=== PATIENT | female | born 1995 | race Caucasian/White ===

== ENCOUNTER → 2017-07-28 | Outpatient (CLI) | payer OTHER ==
[~2017-07-28] MED LIST: CLIN30GE15 TP; DICY20TA70 PO; HYDR-4228 PO; PREN-127 PO; PROP10TA58 PO; SULF-198 PO
== END ==
LOC: LAB 14:01
PROVIDERS: ATTEND Nurse Practitioner Family
DX: N39.0 Urinary tract infection, site not specified (principal)
CPT/HCPCS: 87088

== ENCOUNTER → 2017-08-10 | Outpatient (CLI) | payer OTHER | LOC: LAB 08:24 | PROVIDERS: ATTEND Nurse Practitioner Family | DX: R30.0 Dysuria (principal) | CPT/HCPCS: 81001 ==

== ENCOUNTER → 2017-08-17 | Outpatient (CLI) | payer OTHER ==
[~2017-08-17] MED LIST changes: +CLIN100S3 VG
== END ==
LOC: LAB 09:06
PROVIDERS: ATTEND Nurse Practitioner Family
DX: R30.0 Dysuria (principal)
CPT/HCPCS: 87210; 87491; 87591

== ENCOUNTER → 2017-09-21 | Outpatient (CLI) | payer OTHER ==
[2017-09-21 12:08] LABS: PLATELET COUNT, AUTOMATED 307 K/uL (150-450)
== END ==
LOC: LAB 11:48
PROVIDERS: ATTEND Nurse Practitioner Family
DX: R53.83 Other fatigue (principal); R11.2 Nausea with vomiting, unspecified
CPT/HCPCS: 36415; 82040; 82247; 82310; 82374; 82435; 82565; 82947; 84075; 84132; 84155; 84295; 84443; 84450; 84460; 84520; 85025

== ENCOUNTER → 2018-01-19 | Outpatient (CLI) | payer OTHER | LOC: LAB 08:46 | PROVIDERS: ATTEND Nurse Practitioner Family | DX: R33.9 Retention of urine, unspecified (principal) | CPT/HCPCS: 81001 ==

== ENCOUNTER → 2018-03-28 | Outpatient (REF) ==
[~2018-03-28] MED LIST changes: +CETI10CA8 PO; +DOXY-181 PO; +DULO30CA6 PO; +DULO60CA7 PO
[2018-03-28 10:03] LABS: LDL CHOLESTEROL 68 mg/dl
== END ==
DX: Z02.9 Encounter for administrative examinations, unspecified (principal)

== ENCOUNTER → 2018-04-10 | Outpatient (CLI) | payer OTHER ==
--- NOTE | 2018-04-10 14:58 | RADIOLOGY IMAGING REPORT ---
FACILITY: [facility] - [place] PATIENT NAME: Janelle Spencer : 1995 MR: [id number] V: [id number] EXAM DATE: ORDERING PHYSICIAN: VIKTORIYA RINCON TECHNOLOGIST: Location: [facility] Patient: Janelle Spencer : 1995 Visit/Account:[id number] Date of Sevice: 04/10/2018 KIDNEYS EXAMINATION: Renal ultrasound. History: Urinary retention, frequency night COMPARISON STUDIES: CT abdomen pelvis August 15, 2012 FINDINGS: Kidneys: Right kidney- 10.5 x 3.7 x 5.6 cm Left kidney- 1.5 x 4.8 x 6.2 cm Uniform and symmetric blood flow in each kidney by Doppler ultrasound. Hydronephrosis: none Resistive index on the right 0.61 on the left 0.57 Bladder: Prevoid volume 500 mL. Post void residual 26.8 mL. Bilateral ureteral jets are present Abdominal aorta and IVC: Aorta and IVC are patent by Doppler ultrasound. IMPRESSION: Unremarkable renal ultrasound Report Dictated By: Mary Mon MD at 04/10/2018 2:53 PM Report E-Signed By: Mary Mon MD at 04/10/2018 2:55 PM WSN:[email or web address]
--- NOTE | 2018-04-10 15:03 | RADIOLOGY IMAGING REPORT ---
[place] [facility] [place] Janelle Spencer : 1995 MR: [id number] V: [id number] EXAM DATE: ORDERING PHYSICIAN: VIKTORIYA RINCON TECHNOLOGIST: Location: [facility] [place] Patient: Janelle Spencer : 1995 Visit/Account:[id number] Date of Sevice: 04/10/2018 PELVIC HISTORY: urinary retention IUD TECHNIQUE: Transvaginal and transabdominal ultrasound pelvis. COMPARISON: None. FINDINGS: Uterus: ; 7.6 cm length x 3.4 cm AP x 5.4 cm transverse. Myometrium: Unremarkable. Endometrium: IUD appears to been good position within the endometrial canal; double thickness 6 mm. Cervix: Grossly negative. Ovaries: Right - 4 x 3.8 x 2.2 cm Left - 4.2 x 3.8 x 3.2 cm. The left ovary contains a 2.5 cm cyst Blood flow is documented in each ovary by duplex Doppler ultrasound. Adnexa: Grossly unremarkable. Free pelvic fluid: Mild. Distended IMPRESSION: IUD appears to been good position within the endometrial canal 2.5 cm simple left ovarian cyst Mild amount of free pelvic fluid Report Dictated By: Mary Mon MD at 04/10/2018 2:55 PM Report E-Signed By: Mary Mon MD at 04/10/2018 2:58 PM WSN:[email or web address]
== END ==
LOC: US 01:10
PROVIDERS: ATTEND Nurse Practitioner Family
DX: N83.202 Unspecified ovarian cyst, left side (principal); R33.9 Retention of urine, unspecified; R10.2 Pelvic and perineal pain
CPT/HCPCS: 76705; 76856

== ENCOUNTER → 2018-05-11 | Outpatient (CLI) | payer OTHER ==
[~2018-05-11] MED LIST changes: +FLU150 PO
== END ==
LOC: LAB 14:06
PROVIDERS: ATTEND Nurse Practitioner Family
DX: M25.50 Pain in unspecified joint (principal)
CPT/HCPCS: 36415; 85651; 86140

== ENCOUNTER → 2018-05-25 | Outpatient (CLI) | payer OTHER | LOC: LAB 13:24 | PROVIDERS: ATTEND Nurse Practitioner Family | DX: R30.9 Painful micturition, unspecified (principal); R35.0 Frequency of micturition | CPT/HCPCS: 81001 ==

== ENCOUNTER → 2018-06-25 | Outpatient (CLI) | payer OTHER ==
[2018-06-25 16:23] LABS: PLATELET COUNT, AUTOMATED 306 K/uL (150-450)
== END ==
LOC: LAB 15:57
PROVIDERS: ATTEND Nurse Practitioner Family
DX: R50.9 Fever, unspecified (principal); R53.81 Other malaise
CPT/HCPCS: 36415; 82040; 82247; 82310; 82374; 82435; 82565; 82947; 84075; 84132; 84155; 84295; 84450; 84460; 84520; 85025; 86308

== ENCOUNTER → 2018-07-09 | Outpatient (CLI) | payer OTHER ==
[~2018-07-09] MED LIST changes: +GADOBENATE 529MG/1ML 15ML VIAL IVP ONE
--- NOTE | 2018-07-09 11:05 | RADIOLOGY IMAGING REPORT ---
FACILITY: [facility] - [place] PATIENT NAME: Janelle Spencer : 1995 MR: [id number] V: [id number] EXAM DATE: ORDERING PHYSICIAN: VIKTORIYA RINCON TECHNOLOGIST: Location: [facility] Patient: Janelle Spencer : 1995 Visit/Account:[id number] Date of Sevice: 07/09/2018 Examination: MR brain without and with contrast History: Urinary retention, mild to bilateral paresthesia Comparison: Urinary retention, myalgia, bilateral paresthesia Technique: Multiplane MR imaging was performed through the brain without and with contrast. 14 cc IV multihance was administered. Findings: Diffusion: None Ventricles: Normal Midline shift: None Extraxial fluid: None Midline craniocervical structures: The cerebellar tonsils extend 5 mm inferior to the foramen magnum. Normal tonsil morphology. Parenchyma: Normal Enhancement: Benign enhancing developmental venous anomaly in the right temporoparietal region, axial postcontrast image 75. No pathologic enhancement. Vascular flow voids: Normal Orbits and paranasal sinuses: Normal Other: No significant additional finding. Impression: 1. The cerebellar tonsils extend 5 mm inferior to the foramen magnum. Normal cerebellar tonsil morp hology. 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 A Chiari 1 malformation cannot be entirely excluded. 2. Otherwise unremarkable brain MR without and with contrast Report Dictated By: Keyshawn Hyman MD at 07/09/2018 10:42 AM Report E-Signed By: Keyshawn Hyman MD at 07/09/2018 10:49 AM WSN:[id number]
== END ==
LOC: MRI 02:08
PROVIDERS: ATTEND Nurse Practitioner Family
DX: G93.5 Compression of brain (principal)
CPT/HCPCS: 70553; A9577

== ENCOUNTER → 2018-07-19 | Outpatient (CLI) | payer OTHER ==
--- NOTE | 2018-07-19 14:45 | RADIOLOGY IMAGING REPORT ---
FACILITY: [facility] PATIENT NAME: Janelle Spencer : 1995 MR: [id number] V: [id number] EXAM DATE: ORDERING PHYSICIAN: VIKTORIYA RINCON TECHNOLOGIST: Location: [facility] Patient: Janelle Spencer : 1995 Visit/Account:[id number] Date of Sevice: 07/19/2018 EXAMINATION: MRI Cervical spine without and with intravenous contrast MRI Thoracic spine without and with intravenous contrast MRI Lumbar spine without and with intravenous contrast HISTORY: Bilateral arm paresthesias. Urinary retention. COMPARISON: None available. TECHNIQUE: Multi-planar, multi-sequence cervical, thoracic, and lumbar spine MRI was performed befor e and after IV contrast. CONTRAST: 15 mL of IV MultiHance FINDINGS: CERVICAL SPINE: Alignment: Normal. Vertebral marrow signal: Negative. Cranio-cervical junction: Negative. Visualized posterior fossa: Negative. Soft tissues: Negative. Cervical cord: Negative. Enhancement pattern: Negative. Disc Spaces: C1-2: Negative. C2-3: Negative. C3-4: Negative. C4-5: Negative. C5-6: Broad-based posterior disc osteophyte complex with no significant stenosis. C6-7: Broad-based posterior disc osteophyte complex with no significant stenosis. C7-T1: Negative. THORACIC SPINE: Alignment: Negative. Vertebral marrow signal: Negative. Paravertebral soft tissues: Negative. Thoracic cord: Negative. Enhancement: Normal. Disc Spaces: Negative. LUMBAR SPINE: Alignment: Normal. Vertebral marrow signal: Negative. Distal thoracic cord: Negative. Conus: negative, terminates at the mid L1 vertebral body Cauda equina: Negative. Paravertebral soft tissues: Negative. Visualized abdominal and pelvic structures: Negative. Enhancement pattern: Negative. Disc Spaces: L1-2: Negative. L2-3: Negative. L3-4: Negative. L4-5: Negative. L5-S1: Negative. IMPRESSION: 1. Mild degenerative disc disease at C5-C6 and C6-C7. 2. Otherwise unremarkable MRI of the cervical, thoracic, and lumbar spine without and with IV contras t. Report Dictated By: Antelmo Bingham MD at 07/19/2018 2:28 PM Report E-Signed By: Antelmo Bingham MD at 07/19/2018 2:41 PM WSN:[email or web address]
--- NOTE | 2018-07-19 14:46 | RADIOLOGY IMAGING REPORT ---
FACILITY: [facility] [place] PATIENT NAME: Janelle Spencer : 1995 MR: [id number] V: [id number] EXAM DATE: ORDERING PHYSICIAN: VIKTORIYA RINCON TECHNOLOGIST: Location: [facility] Patient: Janelle Spencer : 1995 Visit/Account:[id number] Date of Sevice: 07/19/2018 EXAMINATION: MRI Cervical spine without and with intravenous contrast MRI Thoracic spine without and with intravenous contrast MRI Lumbar spine without and with intravenous contrast HISTORY: Bilateral arm paresthesias. Urinary retention. COMPARISON: None available. TECHNIQUE: Multi-planar, multi-sequence cervical, thoracic, and lumbar spine MRI was performed befor e and after IV contrast. CONTRAST: 15 mL of IV MultiHance FINDINGS: CERVICAL SPINE: Alignment: Normal. Vertebral marrow signal: Negative. Cranio-cervical junction: Negative. Visualized posterior fossa: Negative. Soft tissues: Negative. Cervical cord: Negative. Enhancement pattern: Negative. Disc Spaces: C1-2: Negative. C2-3: Negative. C3-4: Negative. C4-5: Negative. C5-6: Broad-based posterior disc osteophyte complex with no significant stenosis. C6-7: Broad-based posterior disc osteophyte complex with no significant stenosis. C7-T1: Negative. THORACIC SPINE: Alignment: Negative. Vertebral marrow signal: Negative. Paravertebral soft tissues: Negative. Thoracic cord: Negative. Enhancement: Normal. Disc Spaces: Negative. LUMBAR SPINE: Alignment: Normal. Vertebral marrow signal: Negative. Distal thoracic cord: Negative. Conus: negative, terminates at the mid L1 vertebral body Cauda equina: Negative. Paravertebral soft tissues: Negative. Visualized abdominal and pelvic structures: Negative. Enhancement pattern: Negative. Disc Spaces: L1-2: Negative. L2-3: Negative. L3-4: Negative. L4-5: Negative. L5-S1: Negative. IMPRESSION: 1. Mild degenerative disc disease at C5-C6 and C6-C7. 2. Otherwise unremarkable MRI of the cervical, thoracic, and lumbar spine without and with IV contras t. Report Dictated By: Antelmo Bingham MD at 07/19/2018 2:28 PM Report E-Signed By: Antelmo Bingham MD at 07/19/2018 2:41 PM WSN:[email or web address]
--- NOTE | 2018-07-19 14:46 | RADIOLOGY IMAGING REPORT ---
FACILITY: [facility] PATIENT NAME: Janelle Spencer : 1995 MR: [id number] V: [id number] EXAM DATE: ORDERING PHYSICIAN: VIKTORIYA RINCON TECHNOLOGIST: Location: [facility] [place] Patient: Janelle Spencer : 1995 Visit/Account:[id number] Date of Sevice: 07/19/2018 EXAMINATION: MRI Cervical spine without and with intravenous contrast MRI Thoracic spine without and with intravenous contrast MRI Lumbar spine without and with intravenous contrast HISTORY: Bilateral arm paresthesias. Urinary retention. COMPARISON: None available. TECHNIQUE: Multi-planar, multi-sequence cervical, thoracic, and lumbar spine MRI was performed befor e and after IV contrast. CONTRAST: 15 mL of IV MultiHance FINDINGS: CERVICAL SPINE: Alignment: Normal. Vertebral marrow signal: Negative. Cranio-cervical junction: Negative. Visualized posterior fossa: Negative. Soft tissues: Negative. Cervical cord: Negative. Enhancement pattern: Negative. Disc Spaces: C1-2: Negative. C2-3: Negative. C3-4: Negative. C4-5: Negative. C5-6: Broad-based posterior disc osteophyte complex with no significant stenosis. C6-7: Broad-based posterior disc osteophyte complex with no significant stenosis. C7-T1: Negative. THORACIC SPINE: Alignment: Negative. Vertebral marrow signal: Negative. Paravertebral soft tissues: Negative. Thoracic cord: Negative. Enhancement: Normal. Disc Spaces: Negative. LUMBAR SPINE: Alignment: Normal. Vertebral marrow signal: Negative. Distal thoracic cord: Negative. Conus: negative, terminates at the mid L1 vertebral body Cauda equina: Negative. Paravertebral soft tissues: Negative. Visualized abdominal and pelvic structures: Negative. Enhancement pattern: Negative. Disc Spaces: L1-2: Negative. L2-3: Negative. L3-4: Negative. L4-5: Negative. L5-S1: Negative. IMPRESSION: 1. Mild degenerative disc disease at C5-C6 and C6-C7. 2. Otherwise unremarkable MRI of the cervical, thoracic, and lumbar spine without and with IV contras t. Report Dictated By: Antelmo Bingham MD at 07/19/2018 2:28 PM Report E-Signed By: Antelmo Bingham MD at 07/19/2018 2:41 PM WSN:[email or web address]
== END ==
LOC: MRI 00:49
PROVIDERS: ATTEND Nurse Practitioner Family
DX: M47.892 Other spondylosis, cervical region (principal); R20.2 Paresthesia of skin
CPT/HCPCS: 72156; 72157; 72158; A9577

== ENCOUNTER → 2018-07-24 | Outpatient (CLI) | payer OTHER ==
[~2018-07-24] MED LIST changes: -GADOBENATE 529MG/1ML 15ML VIAL IVP ONE
--- NOTE | 2018-07-24 17:31 | RADIOLOGY IMAGING REPORT ---
FACILITY: [facility] - [place] PATIENT NAME: Janelle Spencer : 1995 MR: [id number] V: [id number] EXAM DATE: ORDERING PHYSICIAN: ADIA HOOD TECHNOLOGIST: Location: [facility] Patient: Janelle Spencer : 1995 Visit/Account:[id number] Date of Sevice: 07/24/2018 KUB SINGLE VIEW ABDOMEN Given history: urinary frequency, hesitancy COMPARISON: None Bowel gas: Bowel gas pattern is within normal limits with scattered air through large and small yinka l. Moderate fecal material is seen in the descending colon with the colon is nondistended and this i s probably within normal limits No abnormal calcifications seen. Renal shadows are not well visualized. Additional findings: There is no evidence of distended bladder. There is an IUD in place which pro jects upside down indicating the uterus is either anteverted or retroverted IMPRESSION: No acute pathology identified. Consider renal and urinary bladder ultrasound for further evaluation Report Dictated By: Winston Jones MD at 07/24/2018 5:23 PM Report E-Signed By: Winston Jones MD at 07/24/2018 5:26 PM WSN:[email or web address]
== END ==
LOC: RAD 15:52
PROVIDERS: ATTEND Urology
DX: R35.0 Frequency of micturition (principal)
CPT/HCPCS: 74018

== ENCOUNTER → 2018-08-10 | Outpatient (CLI) | payer OTHER | LOC: LAB 16:22 | PROVIDERS: ATTEND Nurse Practitioner Family | DX: K92.1 Melena (principal) | CPT/HCPCS: 82274 ==

== ENCOUNTER 2018-09-11 00:32 | Day surgery (SDC) | payer OTHER ==
[~2018-09-11] VITALS: Ht 165.1 cm; Wt 65.3 kg
[~2018-09-11 00:32] MED LIST changes: +LORA10CA3 PO
[2018-09-11] MEDS ORDERED: PROPOFOL EMUL(*) 10MG/ML 20 ML 60 ML ONE (08:49)
[2018-09-11] MEDS ORDERED: LIDOCAINE MPF 1% 5 ML VIAL ONE (08:49)
[2018-09-11] MEDS ORDERED: LIDOCAINE/SOD BICARB 8.4% SYR ID ONE (09:30)
[2018-09-11] MEDS ORDERED: NORMOSOL R SOLN(*) 1000 ML BAG 1,000 ML IV PRN (09:30)
[2018-09-11 09:43] VITALS: BP 131/78
[2018-09-11 12:13] VITALS: BP 104/48
--- NOTE | 2018-09-11 12:39 | Short(Outpt) Discharge Summary ---
Discharge Summary Reason for Hosp/Final Diag: (1) Blood per rectum Hospital Course & Plan: pt presented for colonoscopy. she tolerated the procedure well. she will be discharged home when criteria met. Discharge Instructions Home Meds Active Scripts Duloxetine HCl (Duloxetine HCl) 60 Mg Capsule.dr, 1 CAP PO DAILY, #90 CAP 1 Refill Prov:VIKTORIYA RINCON APRN-Rachel 05/11/18 Dicyclomine Hcl (DICYCLOMINE HCL) 20 Mg Tablet, 1 TAB PO QID PRN for IBS, #30 TAB 5 Refills Prov:VIKTORIYA RINCON APRN-Rachel 07/28/17 Reported Medications Loratadine (CLARITIN) 10 Mg Capsule, 10 MG PO, CAPSULE 08/16/18 Vits W-Ca,Fe,Fa(<1MG) ( VITAMINS) 1 Each Tablet, 1 EACH PO DAILY, TAB 07/28/17 Propranolol Hcl (PROPRANOLOL HCL) 10 Mg Tablet, 20 MG PO BID 07/28/17 Diet: Regular Activity: As Tolerated Special Instructions: we will call you in 10 days with results. MODESTA CROOKS Sep 11, 2018 12:39
[2018-09-11 12:49] VITALS: BP 100/65
[2018-09-11 13:05] VITALS: BP 122/70
[2018-09-11 13:07] VITALS: BP 120/81
== END 2018-09-11 13:20 | disposition home or self-care (01) ==
LOC: OR 00:32
PROVIDERS: ATTEND Surgery
DX: K92.1 Melena (principal)
CPT/HCPCS: 00811; 45380; 88305; J2001; J2704

== ENCOUNTER → 2018-12-10 | Outpatient (CLI) | payer OTHER | LOC: LAB 14:40 | PROVIDERS: ATTEND Nurse Practitioner Primary Care | DX: R10.2 Pelvic and perineal pain (principal) | CPT/HCPCS: 81001; 87210; 87491; 87591 ==

== ENCOUNTER → 2018-12-17 | Outpatient (CLI) | payer OTHER ==
[~2018-12-17] MED LIST changes: +CLO10 PO
== END ==
LOC: LAB 09:20
PROVIDERS: ATTEND Nurse Practitioner Primary Care
DX: J02.9 Acute pharyngitis, unspecified (principal)
CPT/HCPCS: 87081

== ENCOUNTER → 2019-01-02 | Outpatient (CLI) | payer OTHER ==
[~2019-01-02] MED LIST changes: +MUPI22OI28 TP
[2019-01-02 14:20] LABS: PLATELET COUNT, AUTOMATED 400 K/uL (150-450)
== END ==
LOC: LAB 13:52
PROVIDERS: ATTEND Nurse Practitioner Primary Care
DX: M25.50 Pain in unspecified joint (principal)
CPT/HCPCS: 36415; 82040; 82247; 82310; 82374; 82435; 82565; 82947; 84075; 84132; 84155; 84295; 84450; 84460; 84520; 85025; 85651; 86038; 86140; 86200; 86430